=== PATIENT | male | born 1985 | race Caucasian/White ===

== ENCOUNTER 2017-12-17 09:26 | Emergency (ER) | payer BC ==
[~2017-12-17] VITALS: Ht 182.9 cm; Wt 95.5 kg
[~2017-12-17 09:26] MED LIST: CEPHALEXIN500 M1 PO; FLEXERIL 1010 MG/TAB PO; NO HOME MEDICATIONS
[2017-12-17] MEDS ORDERED: VISTARIL50 MG PO (09:37)
[2017-12-17 09:38] VITALS: TEMP 98.6
[2017-12-17] MEDS ORDERED: ZOLOFT 100MG100 MG PO (09:38)
[2017-12-17] MEDS ORDERED: BUSPAR DIVIDOSE15 MG PO (09:38)
[2017-12-17] MEDS ORDERED: NORCO 325 MG-51 TAB PO (11:27)
[2017-12-17] MEDS ORDERED: MOBIC 7.5MG7.5 MG PO (11:27)
[2017-12-17 11:40] VITALS: BP 118/78; PULSE 66
== END 2017-12-17 11:42 | disposition home or self-care (01) ==
LOC: COL.ER 09:26
DX: M54.5 Low back pain (principal); F32.9 Major depressive disorder, single episode, unspecified; F17.210 Nicotine dependence, cigarettes, uncomplicated; Z90.89 Acquired absence of other organs; X50.0XXA Overexertion from strenuous movement or load, initial encounter
CPT/HCPCS: J1885; J2360

== ENCOUNTER 2019-02-18 02:43 | Emergency (ER) | payer BC ==
[~2019-02-18] VITALS: Ht 185.4 cm; Wt 95.5 kg
[~2019-02-18 02:43] MED LIST changes: +BUSPAR DIVIDOSE15 MG PO; +MOBIC 7.5MG7.5 MG PO; +NORCO 325 MG-51 TAB PO; +VISTARIL50 MG PO; +ZOLOFT 100MG100 MG PO
[2019-02-18 02:46] VITALS: BP 146/96
[2019-02-18] MEDS ORDERED: AMOXICILLIN 8751 TAB PO (02:59)
[2019-02-18 03:23] VITALS: PULSE 80
== END 2019-02-18 03:45 | disposition home or self-care (01) ==
LOC: COL.ER 02:43
DX: H66.002 Acute suppurative otitis media without spontaneous rupture of ear drum, left ear (principal)
CPT/HCPCS: J1885

== ENCOUNTER 2021-05-28 12:28 | Emergency (ER) | payer BC ==
[~2021-05-28] VITALS: Ht 180.3 cm; Wt 60.0 kg
[~2021-05-28 12:28] MED LIST changes: +AMOXICILLIN 8751 TAB PO
[2021-05-28 12:35] VITALS: TEMP 98.5
[2021-05-28] MEDS ORDERED: BUSPAR5 MG PO (12:59)
[2021-05-28 13:05] LABS: COLLECTION METHOD CLEAN CATCH
[2021-05-28 13:09] LABS: BASO # 0.1 K/mm3 (0.0-0.2); BASO % 0.5 % (0.0-2.0); EOS # 0.2 K/mm3 (0.0-0.7); EOS % 1.7 % (0.0-4.0); GRAN # 6.4 K/mm3 (1.4-6.5); GRAN % 67.6 % (42.2-75.2); HEMATOCRIT 49.9 % (42.0-52.0); HEMOGLOBIN 16.6 g/dl (13.5-18.0); LYMPH # 2.1 K/mm3 (1.2-3.4); LYMPH % 21.9 % (20.0-51.0); MEAN CELL VOLUME 86 fl (80.0-100.0); MEAN CORPUSCULAR HEMOGLOBIN 29 pg (27-31); MEAN CORPUSCULAR HGB CONC 33 g/dl (33.0-37.0); MEAN PLATELET VOLUME 8.4 fl (7.4-10.4); MONO # 0.8 K/mm3 (0.1-0.6); MONO % 7.9 % (1.7-9.3); PLATELET COUNT 379 K/mm3 (130-400); RED BLOOD COUNT 5.81 M/mm3 (4.20-5.60); REDCELL DISTRIBUTION WIDTH-CV 11.9 % (11.5-14.5)
[2021-05-28 13:13] LABS: MUCOUS Present (NOT PRESENT); PH 5 (5-8); SQUAMOUS EPITHELIAL None Seen /hpf (0-10); URINE APPEARANCE Clear (CLEAR/HAZY); URINE BACTERIA None Seen /hpf (NONE SEEN); URINE BILIRUBIN Negative (NEGATIVE); URINE BLOOD Negative (NEGATIVE); URINE COLOR Yellow (YELLOW); URINE GLUCOSE Negative (NEGATIVE); URINE KETONE Negative (NEGATIVE); URINE LEUKOCYTE ESTERASE Negative (NEGATIVE); URINE NITRATE Negative (NEGATIVE); URINE PROTEIN(semi-quant) Negative (NEGATIVE); URINE RBC 0-2 /hpf (0-2); URINE UROBILINOGEN Negative (NEGATIVE)
[2021-05-28 13:21] LABS: TRICYCLIC ANTIDEPRESS URINE NEGATIVE
[2021-05-28 13:29] LABS: ALANINE AMINOTRANSFERASE 30 U/L (0-55); ALBUMIN 4.6 gm/dL (3.5-5.0); ALKALINE PHOSPHATASE 88 U/L (40-150); ANION GAP 9 mmol/L (7-16); AST,SGOT 19 U/L (5-34); BILIRUBIN,TOTAL 0.7 mg/dL (0.2-1.2); BLOOD UREA NITROGEN 13 mg/dL (9-21); CALCIUM 10.1 mg/dL (8.4-10.2); CARBON DIOXIDE 26 mmol/L (22-29); CHLORIDE 105 mmol/L (98-107); GLUCOSE 104 mg/dL (70-99); POTASSIUM 4.5 mmol/L (3.5-4.5); SODIUM 140 mmol/L (136-145); TOTAL PROTEIN 8.7 gm/dL (6.2-8.1)
[2021-05-28 13:30] LABS: ACETAMINOPHEN < 1.0 ug/mL (10-30); ALCOHOL(ethanol),MEDICAL < 10 mg/dL (0-10); SALICYLATE < 5.0 mg/dL (15.0-30.0)
[2021-05-28 16:40] VITALS: BP 139/92; PULSE 84
== END 2021-05-28 16:40 | disposition home or self-care (01) ==
LOC: COL.ER 12:28
PROVIDERS: Emergency Medicine
DX: R45.851 Suicidal ideations (principal); F41.9 Anxiety disorder, unspecified; F32.A Depression, unspecified; Z79.899 Other long term (current) drug therapy

== ENCOUNTER 2022-08-10 00:07 | Emergency (ER) | payer BC ==
[~2022-08-10] VITALS: Ht 180.3 cm; Wt 113.6 kg
[~2022-08-10 00:07] MED LIST changes: +BUSPAR5 MG PO
[2022-08-10 00:19] VITALS: BP 142/90; TEMP 98.1
[2022-08-10 00:41] VITALS: PULSE 79
== END 2022-08-10 00:53 | disposition home or self-care (01) ==
LOC: COL.ER 00:07
DX: S50.811A Abrasion of right forearm, initial encounter (principal); Z23 Encounter for immunization; W01.110A Fall on same level from slipping, tripping and stumbling with subsequent striking against sharp glass, initial encounter

== ENCOUNTER 2024-02-09 21:01 | Emergency (ER) | payer BC ==
[~2024-02-09] VITALS: Ht 182.9 cm; Wt 113.6 kg
[2024-02-09 21:05] VITALS: TEMP 98.4
[2024-02-09 21:27] LABS: BASO # 0.1 K/mm3 (0.0-0.2); BASO % 0.4 % (0.0-2.0); EOS # 0.1 K/mm3 (0.0-0.7); EOS % 0.6 % (0.0-4.0); GRAN # 9.8 K/mm3 (1.4-6.5); GRAN % 83.1 % (42.2-75.2); LYMPH # 0.9 K/mm3 (1.2-3.4); MEAN CELL VOLUME 87 fl (80.0-100.0); MEAN CORPUSCULAR HGB CONC 35 g/dl (33.0-37.0); MEAN PLATELET VOLUME 8.4 fl (7.4-10.4); MONO # 0.9 K/mm3 (0.1-0.6); MONO % 7.6 % (1.7-9.3); PLATELET COUNT 366 K/mm3 (130-400); RED BLOOD COUNT 6.16 M/mm3 (4.20-5.60); REDCELL DISTRIBUTION WIDTH-CV 12.1 % (11.5-14.5)
[2024-02-09 21:30] LABS: HEMATOCRIT 53.6 % (42.0-52.0); HEMOGLOBIN 18.6 g/dl (13.5-18.0); MEAN CORPUSCULAR HEMOGLOBIN 30 pg (27-31)
[2024-02-09] MEDS ORDERED: Ondansetron 4 MG/2 ML VIAL IV ONE (21:30)
[2024-02-09] MEDS ORDERED: NS 1,000 ML IV ONE (21:30)
[2024-02-09 21:50] LABS: ALBUMIN 4.8 g/dL (3.5-5.0); BILIRUBIN,TOTAL 0.5 mg/dL (0.2-1.2); CALCIUM 10.4 mg/dL (8.4-10.2); CREATININE, serum 1.3 mg/dL (0.72-1.25); POTASSIUM 4.2 mEq/L (3.5-4.5); TOTAL PROTEIN 9.6 g/dl (6.2-8.1)
[2024-02-09 22:18] LABS: C-REACTIVE PROTEIN 1.2 mg/dL (0.00-0.50)
[2024-02-10] MEDS ORDERED: Home Ondansetron ODT 4 MG #2 ODT/PACK PO ONE (00:45)
[2024-02-10 00:54] VITALS: BP 123/70; PULSE 93
== END 2024-02-10 01:05 | disposition home or self-care (01) ==
LOC: COL.ER 21:01
PROVIDERS: Nurse Practitioner
DX: K52.9 Noninfective gastroenteritis and colitis, unspecified (principal)
CPT/HCPCS: J2405; J7030